=== PATIENT | female | born 1970 | race Two or more races ===

== ENCOUNTER 2016-04-17 17:02 | Emergency (ER) | payer MEDICAID ==
[~2016-04-17 17:02] MED LIST: BENA20TA2 PO; OMEP20CA10 PO
--- NOTE | 2016-04-17 17:25 | NUR ---
CALLED IN THE WR, PATIENT IS NOT AROUND
--- NOTE | 2016-04-17 17:39 | NUR ---
CALLED PATIENT IN THE WR, PATIENT IS NOT AROUND.
== END 2016-04-17 17:41 | disposition left against medical advice (07) ==
LOC: ER 17:05
DX: Z53.21 Procedure and treatment not carried out due to patient leaving prior to being seen by health care provider (principal)
CPT/HCPCS: A4606; Z7610

== ENCOUNTER 2016-10-14 13:04 | Emergency (ER) | payer MEDICAID ==
[~2016-10-14] VITALS: Ht 157.5 cm; Wt 72.6 kg
--- NOTE | 2016-10-14 13:13 | NUR ---
PRESENTS SELF TO ED FOR LEFT UPPER BACK PAIN, SHARP, 610 SINCE THIS MORNING. PATIENT IS AMBULATORY. APPEARS IN NO APPARENT DISTRESS. VSS
--- NOTE | 2016-10-14 13:49 | NUR ---
MAYANK CLOTHES DESIGNER AT BEDSIDE FOR EVAL.
[2016-10-14] MEDS ORDERED: IBUPROFEN 600 MG TABLET PO ONE ×2 (14:00→14:24)
[2016-10-14] MEDS ORDERED: HYDROCODONE/APAP 10/325MG 1 EA TABLET PO ONE (14:00)
[2016-10-14] MEDS ORDERED: HYDROCODONE/APAP 10/325MG 1 EA TABLET ONE (14:24)
[2016-10-14 14:44] VITALS: BP 132/6
--- NOTE | 2016-10-14 14:45 | NUR ---
Patient discharged to home in stable condition. Written and verbal after care instructions given. Patient verbalizes understanding of instruction.
== END 2016-10-14 14:45 | disposition home or self-care (01) ==
LOC: ER 13:05
DX: M54.6 Pain in thoracic spine (principal); I10 Essential (primary) hypertension; Z90.89 Acquired absence of other organs
CPT/HCPCS: A4606; Z7610

== ENCOUNTER 2017-01-12 17:32 | Emergency (ER) | payer MEDICAID ==
[~2017-01-12] VITALS: Ht 165.1 cm; Wt 63.5 kg
--- NOTE | 2017-01-12 17:50 | NUR ---
AAOX3, BIB FAMILY C/O WORSENING CHEST PAIN RADIATES TO LEFT ARM X 3 DAYS, DIZZINESS, NAUSEA AND VOMITING. RR IS EVEN AND UNLABORED WITH NAD NOTED. SKIN IS WARM AND DRY. RESP IS EVEN AND UNLABORED WITH NAD NOTED. DR PISANO AT BS FOR EVAL.
[2017-01-12 18:03] LABS: BASOPHILS # (AUTO) 0.1 /CMM (0.0-0.2); BASOPHILS % (AUTO) 0.6 % (0.0-2.0); EOSINOPHILS # (AUTO) 0.2 /CMM (0.0-0.7); EOSINOPHILS % (AUTO) 1.5 % (0.0-6.0); HEMATOCRIT 43 % (33-45); HEMOGLOBIN 14.9 g/dL (11.5-14.8); LYMPHOCYTES # (AUTO) 2.7 /CMM (0.8-4.8); LYMPHOCYTES % (AUTO) 19.6 % (20.0-44.0); MEAN CORPUSCULAR HEMOGLOBIN 29 PG (26.0-33.0); MEAN CORPUSCULAR HGB CONC 35 g/dl (31.0-36.0); MEAN CORPUSCULAR VOLUME 84 fL (82-100); MONOCYTES # (AUTO) 0.7 /CMM (0.1-1.30); MONOCYTES % (AUTO) 5.4 % (2.0-12.0); NEUTROPHILS # (AUTO) 9.9 /CMM (1.8-8.9); NEUTROPHILS % (AUTO) 72.9 % (43.0-81.0); PLATELET COUNT (AUTO) 375 /CMM (150-450); RDW COEFFICIENT OF VARIATION 12.3 (11.5-15.0); RED BLOOD CELL COUNT(AUTO) 5.11 MIL/uL (4.0-5.2); WHITE BLOOD COUNT (AUTO) 13.6 K/uL (4.3-11.0)
[2017-01-12 18:21] LABS: CALCIUM, SERUM 9.4 mg/dL (8.5-10.1); CARBON DIOXIDE 26 mmol/L (21-32); CHLORIDE 103 mmol/L (98-107); CREATININE 0.7 mg/dL (0.6-1.3); GLUCOSE 111 mg/dL (74-106); POTASSIUM 3.7 mmol/L (3.5-5.1); SODIUM SERUM 138 mmol/L (136-145); UREA NITROGEN, BLOOD 14 mg/dL (7-18)
[2017-01-12 18:28] LABS: INR 0.89 (0.87-1.13); PROTHROMBIN TIME 9.3 SECS (9.5-12.7)
[2017-01-12 18:31] LABS: TROPONIN I < 0.017 ng/mL (0.00-0.056)
[2017-01-12] MEDS ORDERED: KETOROLAC TROMETHAMINE INJ 30 MG/ML VIAL IV ONE (19:30)
[2017-01-12] MEDS ORDERED: KETOROLAC TROMETHAMINE INJ 30 MG/ML VIAL ONE (19:42)
--- NOTE | 2017-01-12 19:45 | NUR ---
MEDICATED PATIENT ORDERED BY DR PISANO. COMFORT MEASURES RENDERED TO PATIENT. ONGOING MONITORING. FAMILY AT BEDSIDE.
--- NOTE | 2017-01-12 21:06 | NUR ---
PLASTIC TOOL MAKER AT BEDSIDE TO DRAW BLOOD FOR TROPONIN LEVEL.
--- NOTE | 2017-01-12 22:06 | NUR ---
IV removed. Catheter intact and site benign. Pressure and 4x4 applied to site. No bleeding noted. Patient discharged to home in stable condition. Written and verbal after care instructions given. Patient verbalizes understanding of instruction. Patient is ambulatory with steady gait, accompanied by family. No further complaints.
[2017-01-12 22:07] VITALS: BP 134/74
== END 2017-01-12 22:07 | disposition home or self-care (01) ==
LOC: ER 17:39
DX: R07.89 Other chest pain (principal); I10 Essential (primary) hypertension; Z90.89 Acquired absence of other organs
CPT/HCPCS: 36415; 71010; 80048; 84484 ×2; 84703; 85025; 85730; 93005 ×2; 96374; 99285; A4606; J1885; Z7610

== ENCOUNTER 2018-12-15 13:28 | Emergency (ER) | payer MEDICAID ==
[~2018-12-15] VITALS: Ht 157.5 cm; Wt 74.8 kg
[~2018-12-15 13:28] MED LIST changes: -BENA20TA2 PO; +BENA20TA9 PO; -OMEP20CA10 PO; +OMEP20CA11 PO
[2018-12-15] MEDS ORDERED: KETOROLAC TROMETHAMINE INJ 60 MG/2 ML VIAL IM ONE ×2 (14:25→14:30)
--- NOTE | 2018-12-15 15:30 | NUR ---
PATIENT AWAKE ALERT CAMBODIAN SPEAKING HER DAUGHTER @ BEDSIDE MADE AWARE PLAN OF CARE
[2018-12-15 16:04] VITALS: BP 123/67
--- NOTE | 2018-12-15 16:06 | NUR ---
Patient discharged to home in stable condition. Written and verbal after care instructions given and PRESCRITION . Patient verbalizes understanding of instruction.
== END 2018-12-15 16:14 | disposition home or self-care (01) ==
LOC: ER 13:32
DX: M54.6 Pain in thoracic spine (principal); I10 Essential (primary) hypertension; Z90.89 Acquired absence of other organs; Z79.899 Other long term (current) drug therapy
CPT/HCPCS: 96372; 99283; J1885

== ENCOUNTER 2019-01-09 08:15 | Emergency (ER) | payer MEDICAID ==
[~2019-01-09] VITALS: Ht 157.5 cm; Wt 72.6 kg
--- NOTE | 2019-01-09 08:34 | NUR ---
BIBDAUGHTER, C/O CP PRESSURE LIKE RADIATING TO LEFT ARM SINCE THURSDAY. ON ROOM AIR, BREATHING EVENLY AND UNLABORED. CONNECTED TO THE MONITOR AND PULSE OX. WILL CONTINUE TO MONITOR ACCORDINGLY.
[2019-01-09 08:58] LABS: BASOPHILS # (AUTO) 0.1 /CMM (0.0-0.2); BASOPHILS % (AUTO) 0.7 % (0.0-2.0); EOSINOPHILS % (AUTO) 1.9 % (0.0-6.0); HEMATOCRIT 43 % (33-45); HEMOGLOBIN 14.3 g/dL (11.5-14.8); LYMPHOCYTES # (AUTO) 3.1 /CMM (0.8-4.8); LYMPHOCYTES % (AUTO) 21.4 % (20.0-44.0); MEAN CORPUSCULAR HGB CONC 33 g/dl (31.0-36.0); MEAN CORPUSCULAR VOLUME 85 fL (82-100); MONOCYTES % (AUTO) 7.1 % (2.0-12.0); NEUTROPHILS # (AUTO) 9.9 /CMM (1.8-8.9); NEUTROPHILS % (AUTO) 68.9 % (43.0-81.0); PLATELET COUNT (AUTO) 387 /CMM (150-450); RED BLOOD CELL COUNT(AUTO) 5.14 MIL/uL (4.0-5.2); WHITE BLOOD COUNT (AUTO) 14.3 K/uL (4.3-11.0)
[2019-01-09 09:00] LABS: CALCIUM, SERUM 9.2 mg/dL (8.5-10.1); CARBON DIOXIDE 27 mmol/L (21-32); CHLORIDE 103 mmol/L (98-107); CREATININE 0.6 mg/dL (0.6-1.3); GLUCOSE 102 mg/dL (74-106); POTASSIUM 3.7 mmol/L (3.5-5.1); SODIUM SERUM 138 mmol/L (136-145); UREA NITROGEN, BLOOD 12 mg/dL (7-18)
[2019-01-09] MEDS ORDERED: ASPIRIN 325 MG TABLET PO ONE (09:00)
[2019-01-09] MEDS ORDERED: ASPIRIN 325 MG TABLET ONE (09:00)
[2019-01-09 12:01] VITALS: BP 127/79
--- NOTE | 2019-01-09 12:01 | NUR ---
Patient discharged to home in stable condition. Written and verbal after care instructions given. Patient verbalizes understanding of instruction. IV removed. Catheter intact and site benign. Pressure and 4x4 applied to site. No bleeding noted.
== END 2019-01-09 12:02 | disposition home or self-care (01) ==
LOC: ER 08:19
DX: M25.512 Pain in left shoulder (principal); R07.89 Other chest pain; I10 Essential (primary) hypertension; Z90.89 Acquired absence of other organs; Z79.899 Other long term (current) drug therapy
CPT/HCPCS: 36415; 71045-TC; 73030-TC; 80048-TC; 84484-TC; 85025-TC

== ENCOUNTER 2021-07-28 10:17 | Emergency (ER) | payer MEDICAID, OTHER ==
[~2021-07-28] VITALS: Ht 157.5 cm; Wt 77.1 kg
[~2021-07-28 10:17] MED LIST changes: -OMEP20CA11 PO; +OMEP20CA15 PO
--- NOTE | 2021-07-28 10:17 | NUR ---
PT BIB SELF C/O L SIDED NUMBNESS FROM L ARM TO L LEG STARTED 7AM TODAY. PT IS AAOX4, NOT IN RESPIRATORY DISTRESS, HOOKED TO V/S MONITOR, KEPT RESTED AND COMFORTABLE. WILL CONTINUE TO MONITOR.
--- NOTE | 2021-07-28 10:50 | NUR ---
IV LINE ESTABLISHED BLOOD DRAWN AND SENT TO LAB.
[2021-07-28] MEDS ORDERED: MELO-107 PO (10:59)
[2021-07-28] MEDS ORDERED: METO25TA20 PO (10:59)
[2021-07-28] MEDS ORDERED: ASPI-1420 PO (10:59)
--- NOTE | 2021-07-28 11:00 | NUR ---
BG 106
--- NOTE | 2021-07-28 11:00 | NUR ---
IV CANNULA G18 INSERTED ON LEFT AC. BLOOD DRAWN AND SENT TO LAB
[2021-07-28] MEDS ORDERED: ASPIRIN EC 325 MG TABLET.DR PO ONE (11:27)
[2021-07-28] MEDS ORDERED: IV NS 0.9% 500 ML BAG IV ONE (11:30)
[2021-07-28] MEDS ORDERED: ASPIRIN 325 MG TABLET PO ONE (11:30)
--- NOTE | 2021-07-28 11:30 | NUR ---
COVID SWAB DONE
[2021-07-28] MEDS ORDERED: CT SWABBABLE VALVE TRANS SET 1 EA INFUS.SET MC ONE (11:39)
[2021-07-28] MEDS ORDERED: IOHEXOL-350 100 ML VIAL IV ONE (11:39)
[2021-07-28] MEDS ORDERED: IV NS 0.9% 250 ML IV ONE (11:40)
--- NOTE | 2021-07-28 11:40 | NUR ---
PT WHEELED TO CT DEPT
[2021-07-28 11:55] LABS: BASOPHILS # (AUTO) 0.3 K/uL (0.0-0.2); BASOPHILS % (AUTO) 2.9 % (0.0-2.0); EOSINOPHILS % (AUTO) 2.5 % (0.0-6.0); HEMATOCRIT 43 % (33-45); HEMOGLOBIN 14.6 g/dL (11.5-14.8); LYMPHOCYTES # (AUTO) 2.1 K/uL (0.8-4.8); MEAN CORPUSCULAR HGB CONC 34 g/dl (31.0-36.0); MEAN CORPUSCULAR VOLUME 83 fL (82-100); MONOCYTES # (AUTO) 0.7 K/uL (0.1-1.30); MONOCYTES % (AUTO) 6.8 % (2.0-12.0); NEUTROPHILS % (AUTO) 67.8 % (43.0-81.0); PLATELET COUNT (AUTO) 348 K/uL (150-450); RED BLOOD CELL COUNT(AUTO) 5.16 MIL/uL (4.0-5.2); WHITE BLOOD COUNT (AUTO) 10.3 K/uL (4.3-11.0)
--- NOTE | 2021-07-28 11:55 | NUR ---
CAME BACK FROM CT
[2021-07-28 12:06] LABS: CALCIUM, SERUM 8.9 mg/dL (8.5-10.1); CARBON DIOXIDE 28 mmol/L (21-32); CHLORIDE 105 mmol/L (98-107); CREATININE 0.7 mg/dL (0.6-1.3); GLUCOSE 112 mg/dL (74-106); POTASSIUM 3.6 mmol/L (3.5-5.1); SODIUM SERUM 143 mmol/L (136-145); UREA NITROGEN, BLOOD 10 mg/dL (7-18)
[2021-07-28 12:12] LABS: ALANINE AMINOTRANSFERASE 26 U/L (12-78); ALBUMIN 3.9 g/dL (3.4-5.0); ALKALINE PHOSPHATASE 107 U/L (46-116); ASPARTATE AMINOTRANSFERASE 19 U/L (15-37); BILIRUBIN,DIRECT 0.1 mg/dL (0.0-0.2); BILIRUBIN,TOTAL 0.3 mg/dL (0.2-1.0); TOTAL PROTEIN, SERUM 8.4 g/dL (6.4-8.2)
--- NOTE | 2021-07-28 13:31 | NUR ---
MOVE SHEET SUBMITTED.
--- NOTE | 2021-07-28 15:22 | NUR ---
CALLED DR. CONNOLLY AT [facility] [phone] MCADAMS.
[2021-07-28 19:26] LABS: CHOLESTEROL 220 mg/dL (<200); HDL CHOLESTEROL 46 mg/dL (40-60); LDL 154 mg/dL (0-99); TRIGLYCERIDES 108 mg/dL (30-150)
--- NOTE | 2021-07-28 20:00 | NUR ---
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
--- NOTE | 2021-07-28 20:09 | NUR ---
CALLED [facility] FOR TRANSPORT PLACED ON WILL CALL. [phone]
--- NOTE | 2021-07-29 01:25 | NUR ---
FOLLOWED UP WITH COORDINATOR AND WILL FOLLOW UP WITH GILBERTO ORNELAS FOR THE ROOM. WILL CALL BACK FOR TRANSFER INFO
--- NOTE | 2021-07-29 03:24 | NUR ---
accepted at [facility] room 519 tele report [phone]
--- NOTE | 2021-07-29 03:26 | NUR ---
[facility] ETA 30-45 MINUTES.
[2021-07-29 03:45] VITALS: BP 138/94
--- NOTE | 2021-07-29 03:52 | NUR ---
REPORT GIVEN TO PALOMA LAMA FOR YOLANDA AT THE [facility]
--- NOTE | 2021-07-29 04:12 | NUR ---
LIZZIE 330 AT BEDSIDE FOR PT TRANSPORT TO [facility]. REPORT GIVEN TO ZONIA, EMT
--- NOTE | 2021-07-29 04:16 | NUR ---
PT LEFT ON GURNEY WITH 2 EMT.
== END 2021-07-29 04:17 | disposition short-term general hospital (02) ==
LOC: ER 10:23
DX: R20.0 Anesthesia of skin (principal); M79.602 Pain in left arm; Z20.822 Contact with and (suspected) exposure to COVID-19; I10 Essential (primary) hypertension
CPT/HCPCS: 36415; 70450; 70496; 70498; 71045; 80048; 80061; 80076; 82962; 84484; 85025; 85730; 87426; 93005; 99291; C9803; J7040; J7050; Q9967

== ENCOUNTER 2021-12-06 16:07 | Emergency (ER) | payer OTHER ==
[~2021-12-06] VITALS: Ht 157.5 cm; Wt 77.6 kg
[~2021-12-06 16:07] MED LIST changes: +ASPI-1420 PO; +MELO-107 PO; +METO25TA20 PO; -OMEP20CA15 PO
--- NOTE | 2021-12-06 16:25 | NUR ---
Karna clifton in EDM - 12/06/21 at 1928 by NURA BIBFAMILY C/O HEADACHE [id number] P/S 08/02, HX OF TIA
[2021-12-06] MEDS ORDERED: METOCLOPRAMIDE HCL 10 MG TABLET PO ONE (18:00)
[2021-12-06] MEDS ORDERED: SUMATRIPTAN SUCCINATE 25 MG TABLET PO ONE (18:00)
[2021-12-06] MEDS ORDERED: KETOROLAC TROMETHAMINE INJ 30 MG/ML VIAL IM ONE (18:00)
[2021-12-06] MEDS ORDERED: SUMATRIPTAN SUCCINATE 25 MG TABLET ONE (18:03)
[2021-12-06] MEDS ORDERED: METOCLOPRAMIDE HCL 10 MG TABLET ONE (18:03)
[2021-12-06] MEDS ORDERED: KETOROLAC TROMETHAMINE INJ 30 MG/ML VIAL ONE (18:03)
--- NOTE | 2021-12-06 19:05 | NUR ---
1625 BIBFAMILY C/O HEADACHE [id number] P/S 08/02, HX OF TIA
[2021-12-06] MEDS ORDERED: KETO10TA2 PO (19:19)
[2021-12-06] MEDS ORDERED: SUMA100T PO (19:19)
--- NOTE | 2021-12-06 19:26 | NUR ---
Patient discharged to home in stable condition. Written and verbal after care instructions given. Patient verbalizes understanding of instruction. pt ambulatory with a steady gait
[2021-12-06 19:28] VITALS: BP 143/81
== END 2021-12-06 19:28 | disposition home or self-care (01) ==
LOC: ER 16:11
DX: G43.909 Migraine, unspecified, not intractable, without status migrainosus (principal); I10 Essential (primary) hypertension; Z90.89 Acquired absence of other organs; Z79.899 Other long term (current) drug therapy
CPT/HCPCS: 99284; 70450; 96372; J8597; J1885

== ENCOUNTER 2021-12-12 06:18 | Emergency (ER) | payer MEDICAID, OTHER ==
[~2021-12-12] VITALS: Ht 162.6 cm; Wt 72.6 kg
[~2021-12-12 06:18] MED LIST changes: +KETO10TA2 PO; +SUMA100T PO
--- NOTE | 2021-12-12 06:29 | NUR ---
BIBDAUGHTER FROM HOME C/O LEFT SIDED CP SINCE 1900 LAST NIGHT RADIATING TO LEFT ARM, AND JAW. PAIN SCALE 7/10. PT A/OX4. TOLERATING R/A WELL WITH NO SOB. AMBULATORY WITH STEADY GAIT. CONNECTED PT TO POX AND MONITOR. SAFETY MEASURES IN PLACE.
--- NOTE | 2021-12-12 06:34 | NUR ---
DR. GERBER APONTE AT PT'S BEDSIDE FOR EVAL
[2021-12-12] MEDS ORDERED: ASPIRIN 325 MG TABLET ONE (06:43)
--- NOTE | 2021-12-12 06:47 | NUR ---
RN AT PT'S BEDSIDE FOR EKG
--- NOTE | 2021-12-12 06:55 | NUR ---
RAC #18G S/L BLOOD COLLECTED AND SENT TO LAB
[2021-12-12] MEDS ORDERED: ASPIRIN 325 MG TABLET PO ONE (07:00)
[2021-12-12 07:11] LABS: BASOPHILS % (AUTO) 0.3 % (0.0-2.0); EOSINOPHILS % (AUTO) 2.5 % (0.0-6.0); HEMATOCRIT 41 % (33-45); HEMOGLOBIN 13.5 g/dL (11.5-14.8); LYMPHOCYTES # (AUTO) 3.2 K/uL (0.8-4.8); MEAN CORPUSCULAR HGB CONC 33 g/dl (31.0-36.0); MEAN CORPUSCULAR VOLUME 84 fL (82-100); MONOCYTES # (AUTO) 0.9 K/uL (0.1-1.30); MONOCYTES % (AUTO) 7.9 % (2.0-12.0); NEUTROPHILS % (AUTO) 61.3 % (43.0-81.0); PLATELET COUNT (AUTO) 352 K/uL (150-450); RED BLOOD CELL COUNT(AUTO) 4.91 MIL/uL (4.0-5.2); WHITE BLOOD COUNT (AUTO) 11.4 K/uL (4.3-11.0)
--- NOTE | 2021-12-12 07:15 | NUR ---
DELIVERY DRIVER/CUSTOMER SERVICE AT PT'S BEDSIDE
[2021-12-12 07:20] LABS: CALCIUM, SERUM 8.8 mg/dL (8.5-10.1); CARBON DIOXIDE 28 mmol/L (21-32); CHLORIDE 103 mmol/L (98-107); CREATININE 0.6 mg/dL (0.6-1.3); GLUCOSE 113 mg/dL (74-106); POTASSIUM 3.8 mmol/L (3.5-5.1); SODIUM SERUM 138 mmol/L (136-145); UREA NITROGEN, BLOOD 10 mg/dL (7-18)
[2021-12-12 07:32] LABS: ALANINE AMINOTRANSFERASE 18 U/L (12-78); ALBUMIN 3.4 g/dL (3.4-5.0); ALKALINE PHOSPHATASE 90 U/L (46-116); ASPARTATE AMINOTRANSFERASE 13 U/L (15-37); BILIRUBIN,DIRECT 0.1 mg/dL (0.0-0.2); BILIRUBIN,TOTAL 0.5 mg/dL (0.2-1.0); TOTAL PROTEIN, SERUM 7.5 g/dL (6.4-8.2)
--- NOTE | 2021-12-12 07:46 | NUR ---
No acute changes, NO obvious distress- Family at bedside both Pt/daughter made aware of plan care
[2021-12-12] MEDS ORDERED: MORPHINE SULFATE INJ 2 MG/ML DISP.SYRIN IV ONE (09:30)
[2021-12-12] MEDS ORDERED: MORPHINE SULFATE INJ 2 MG/ML DISP.SYRIN ONE (09:34)
--- NOTE | 2021-12-12 10:15 | NUR ---
discharge pt. per order/protocol; stable.accompanied by daughter upon discharge,discharge education given per protocol, pt/daughter verbalized understanding. all needs met.
[2021-12-12 10:29] VITALS: BP 128/86
== END 2021-12-12 10:15 | disposition home or self-care (01) ==
LOC: ER 06:20
DX: R07.89 Other chest pain (principal); I10 Essential (primary) hypertension; E78.00 Pure hypercholesterolemia, unspecified; M19.90 Unspecified osteoarthritis, unspecified site; Z90.89 Acquired absence of other organs; Z79.899 Other long term (current) drug therapy
CPT/HCPCS: 36415; 71045-TC; 80048-TC; 80076-TC; 83880; 84484-TC; 85025-TC; 85730-TC; J2270

== ENCOUNTER 2022-03-13 06:40 | Emergency (ER) | payer MEDICAID, OTHER ==
[~2022-03-13] VITALS: Ht 160 cm; Wt 77.1 kg
[2022-03-13] MEDS ORDERED: LIDOCAINE 2% JEL UROJET 10 ML MM ONE (07:30)
[2022-03-13] MEDS ORDERED: IV NS 0.9% 500 ML BAG IV ONE (07:30)
[2022-03-13] MEDS ORDERED: PANTOPRAZOLE 40 MG VIAL IV ONE (07:30)
[2022-03-13] MEDS ORDERED: MAG HYDROX/AL HYDROX/SIMETH 30 ML UDC PO ONE (07:30)
[2022-03-13 07:36] LABS: BASOPHILS % (AUTO) 0.5 % (0.0-2.0); EOSINOPHILS % (AUTO) 2.7 % (0.0-6.0); HEMATOCRIT 39 % (33-45); HEMOGLOBIN 12.7 g/dL (11.5-14.8); LYMPHOCYTES # (AUTO) 2.5 K/uL (0.8-4.8); LYMPHOCYTES % (AUTO) 25.2 % (20.0-44.0); MEAN CORPUSCULAR HGB CONC 33 g/dl (31.0-36.0); MEAN CORPUSCULAR VOLUME 83 fL (82-100); MONOCYTES # (AUTO) 0.8 K/uL (0.1-1.30); MONOCYTES % (AUTO) 7.9 % (2.0-12.0); NEUTROPHILS # (AUTO) 6.4 K/uL (1.8-8.9); NEUTROPHILS % (AUTO) 63.7 % (43.0-81.0); PLATELET COUNT (AUTO) 312 K/uL (150-450); RED BLOOD CELL COUNT(AUTO) 4.66 MIL/uL (4.0-5.2)
[2022-03-13] MEDS ORDERED: PANTOPRAZOLE 40 MG VIAL ONE (07:36)
[2022-03-13] MEDS ORDERED: MAG HYDROX/AL HYDROX/SIMETH 30 ML UDC ONE (07:36)
[2022-03-13 07:37] LABS: BILIRUBIN,URINE NEGATIVE (NEGATIVE); COLOR,URINE YELLOW (YELLOW); LEUKOCYTE ESTERASE ,URINE TRACE (NEGATIVE); NITRITE, URINE NEGATIVE (NEGATIVE); PH,URINE 6.5 (5.0-8.0); PROTEIN,URINE NEGATIVE (NEGATIVE); UGLUCOSE NEGATIVE (NEGATIVE); UROBILINOGEN,URINE 0.2 EU/dL (0.2)
[2022-03-13] MEDS ORDERED: LIDOCAINE VISCOUS 2% UD 15 ML UDC ONE (07:37)
--- NOTE | 2022-03-13 07:48 | NUR ---
URINE SAMPLE COLLECTED AND SENT TO LAB
--- NOTE | 2022-03-13 07:50 | NUR ---
BLOOD DRAWN BY PHLEB AT BEDSIDE
--- NOTE | 2022-03-13 07:57 | NUR ---
LAC #20, IVF INFUSING. MAALOX AND LIDOCAINE PO GIVEN INDICATED, KISHA WELL.
[2022-03-13] MEDS ORDERED: LIDOCAINE VISCOUS 2% UD 15 ML UDC MM ONE (08:00)
--- NOTE | 2022-03-13 08:05 | NUR ---
tech at bedside for ultrasound
[2022-03-13 08:20] LABS: BACTERIA,URINE Rare /HPF (None Seen); RBC,URINE 0-2 /HPF (0-2); SQUAMOUS EPITHELIAL CELL,UR Many /HPF (None Seen); WBC,URINE 0-2 /HPF (0-3)
[2022-03-13 08:42] LABS: ALBUMIN 3.2 g/dL (3.4-5.0); BILIRUBIN,DIRECT 0.1 mg/dL (0.0-0.2); BILIRUBIN,TOTAL 0.4 mg/dL (0.2-1.0); CALCIUM, SERUM 8.7 mg/dL (8.5-10.1); CREATININE 0.6 mg/dL (0.6-1.3); POTASSIUM 3.7 mmol/L (3.5-5.1); TOTAL PROTEIN, SERUM 7.1 g/dL (6.4-8.2)
[2022-03-13] MEDS ORDERED: PANT20TA2 PO (08:53)
--- NOTE | 2022-03-13 09:45 | NUR ---
IV removed. Catheter intact and site benign. Pressure and 4x4 applied to site. No bleeding noted.
--- NOTE | 2022-03-13 09:49 | NUR ---
Patient discharged to home in stable condition. Written and verbal after care instructions given. Patient verbalizes understanding of instruction.
[2022-03-13 09:50] VITALS: BP 138/65
== END 2022-03-13 09:57 | disposition home or self-care (01) ==
LOC: ER 06:42
DX: R10.13 Epigastric pain (principal); I10 Essential (primary) hypertension; E78.00 Pure hypercholesterolemia, unspecified; M19.90 Unspecified osteoarthritis, unspecified site; Z90.89 Acquired absence of other organs; Z79.82 Long term (current) use of aspirin; Z79.899 Other long term (current) drug therapy
CPT/HCPCS: 99285; 96374; 76700; 71045; 96361; 93005; 85025; 80048; 83690; 80076; 81001; 36415; J7040; C9113

== ENCOUNTER 2022-05-05 17:56 | Emergency (ER) | payer OTHER ==
[~2022-05-05] VITALS: Ht 160 cm; Wt 76.2 kg
[~2022-05-05 17:56] MED LIST changes: +PANT20TA2 PO
--- NOTE | 2022-05-05 18:15 | NUR ---
BIBDAUGHTER C/O LEFT ARM NUMBNESS SINCE "8AM YESTERDAY". AMBULATORY, PLACED IN BED, AAOX4, BREATHING EVEN AND UNLABORED SATURATING AT 97%RA.
--- NOTE | 2022-05-05 18:36 | NUR ---
BLOOD DRAWN AND SENT TO LAB
[2022-05-05 19:16] LABS: CALCIUM, SERUM 9.3 mg/dL (8.5-10.1); CHLORIDE 103 mmol/L (98-107); CREATININE 0.7 mg/dL (0.6-1.3); GLUCOSE 103 mg/dL (74-106); POTASSIUM 3.7 mmol/L (3.5-5.1); SODIUM SERUM 138 mmol/L (136-145); UREA NITROGEN, BLOOD 13 mg/dL (7-18)
[2022-05-05 19:38] LABS: CARBON DIOXIDE 29 mmol/L (21-32)
[2022-05-05] MEDS ORDERED: IOHEXOL-350 100 ML VIAL IV ONE (19:49)
[2022-05-05] MEDS ORDERED: IV NS 0.9% 250 ML IV ONE (19:49)
[2022-05-05] MEDS ORDERED: CT SWABBABLE VALVE TRANS SET 1 EA INFUS.SET MC ONE (19:49)
[2022-05-05 19:55] LABS: BASOPHILS % (AUTO) 0.2 % (0.0-2.0); EOSINOPHILS % (AUTO) 3.3 % (0.0-6.0); HEMATOCRIT 42 % (33-45); HEMOGLOBIN 13.5 g/dL (11.5-14.8); LYMPHOCYTES # (AUTO) 2.9 K/uL (0.8-4.8); LYMPHOCYTES % (AUTO) 29.2 % (20.0-44.0); MEAN CORPUSCULAR HGB CONC 32 g/dl (31.0-36.0); MEAN CORPUSCULAR VOLUME 83 fL (82-100); MONOCYTES # (AUTO) 0.8 K/uL (0.1-1.30); MONOCYTES % (AUTO) 8.3 % (2.0-12.0); NEUTROPHILS # (AUTO) 5.8 K/uL (1.8-8.9); PLATELET COUNT (AUTO) 341 K/uL (150-450); RED BLOOD CELL COUNT(AUTO) 5.06 MIL/uL (4.0-5.2); WHITE BLOOD COUNT (AUTO) 9.8 K/uL (4.3-11.0)
--- NOTE | 2022-05-05 20:15 | NUR ---
PATIENT TAKEN TO CT VIA JIN
[2022-05-05] MEDS ORDERED: ASPIRIN EC 81 MG TABLET.DR PO ONE (21:30)
[2022-05-05 21:48] VITALS: BP 116/70
== END 2022-05-05 21:35 | disposition home or self-care (01) ==
LOC: ER 17:58
DX: R20.0 Anesthesia of skin (principal); I10 Essential (primary) hypertension; E78.00 Pure hypercholesterolemia, unspecified; Z90.49 Acquired absence of other specified parts of digestive tract; Z79.899 Other long term (current) drug therapy; Z79.82 Long term (current) use of aspirin; Z86.73 Personal history of transient ischemic attack (TIA), and cerebral infarction without residual deficits
CPT/HCPCS: 99285; 72125; 71045; 93005; 70498; 70496; 85025; 80048; 36415; 84484; 85730; 82962; J7050; Q9967

== ENCOUNTER 2023-03-13 06:26 | Emergency (ER) | payer OTHER ==
[~2023-03-13] VITALS: Ht 157.5 cm; Wt 73.9 kg
[~2023-03-13 06:26] MED LIST changes: +IBUP-1953 PO
[2023-03-13 07:46] LABS: BASOPHILS % (AUTO) 0.3 % (0.0-2.0); EOSINOPHILS # (AUTO) 0.3 K/uL (0.0-0.7); EOSINOPHILS % (AUTO) 3.3 % (0.0-6.0); HEMATOCRIT 43 % (33-45); HEMOGLOBIN 14.2 g/dL (11.5-14.8); LYMPHOCYTES # (AUTO) 2.5 K/uL (0.8-4.8); LYMPHOCYTES % (AUTO) 28.8 % (20.0-44.0); MEAN CORPUSCULAR HEMOGLOBIN 29 PG (26.0-33.0); MEAN CORPUSCULAR HGB CONC 33 g/dl (31.0-36.0); MEAN CORPUSCULAR VOLUME 86 fL (82-100); MONOCYTES # (AUTO) 0.8 K/uL (0.1-1.30); NEUTROPHILS # (AUTO) 5.1 K/uL (1.8-8.9); NEUTROPHILS % (AUTO) 58.6 % (43.0-81.0); PLATELET COUNT (AUTO) 289 K/uL (150-450); RED BLOOD CELL COUNT(AUTO) 4.98 MIL/uL (4.0-5.2); RED CELL DISTRIBUTION WIDTH 13.3 % (11.5-15.0); WHITE BLOOD COUNT (AUTO) 8.6 K/uL (4.3-11.0)
[2023-03-13 08:00] LABS: PREGNANCY TEST URINE QUAL NEGATIVE (NEGATIVE)
[2023-03-13 08:09] LABS: CALCIUM, SERUM 9.2 mg/dL (8.5-10.1); CARBON DIOXIDE 29 mmol/L (21-32); CHLORIDE 103 mmol/L (98-107); CREATININE 0.7 mg/dL (0.6-1.3); GLUCOSE 111 mg/dL (74-106); POTASSIUM 3.8 mmol/L (3.5-5.1); SODIUM SERUM 139 mmol/L (136-145); UREA NITROGEN, BLOOD 11 mg/dL (7-18)
[2023-03-13 11:07] VITALS: BP 128/79; TEMP 98.1; O2SAT 97
== END 2023-03-13 11:07 | disposition home or self-care (01) ==
LOC: ER 06:29
DX: M79.10 Myalgia, unspecified site (principal); R07.89 Other chest pain; I10 Essential (primary) hypertension; E78.00 Pure hypercholesterolemia, unspecified; E11.9 Type 2 diabetes mellitus without complications; M19.90 Unspecified osteoarthritis, unspecified site; Z90.89 Acquired absence of other organs; Z79.899 Other long term (current) drug therapy
CPT/HCPCS: 36415; 70450-TC; 71045-TC; 80048-TC; 84484-TC; 84703-TC; 85025-TC

== ENCOUNTER 2023-07-12 19:22 | Emergency (ER) | payer OTHER ==
[~2023-07-12] VITALS: Ht 157.5 cm; Wt 76.2 kg
[2023-07-12] MEDS ORDERED: MECLIZINE HCL 25 MG TABLET ONE (20:03)
[2023-07-12] MEDS: MECLIZINE HCL 12.5 MG TABLET PO ONE (20:06)
[2023-07-12 20:16] LABS: BASOPHILS % (AUTO) 0.5 % (0.0-2.0); EOSINOPHILS # (AUTO) 0.3 K/uL (0.0-0.7); EOSINOPHILS % (AUTO) 3.2 % (0.0-6.0); HEMATOCRIT 43 % (33-45); HEMOGLOBIN 14.4 g/dL (11.5-14.8); LYMPHOCYTES # (AUTO) 3.5 K/uL (0.8-4.8); LYMPHOCYTES % (AUTO) 38.1 % (20.0-44.0); MEAN CORPUSCULAR HEMOGLOBIN 29 PG (26.0-33.0); MEAN CORPUSCULAR HGB CONC 33 g/dl (31.0-36.0); MEAN CORPUSCULAR VOLUME 87 fL (82-100); MONOCYTES # (AUTO) 0.7 K/uL (0.1-1.30); MONOCYTES % (AUTO) 7.5 % (2.0-12.0); NEUTROPHILS # (AUTO) 4.6 K/uL (1.8-8.9); NEUTROPHILS % (AUTO) 50.7 % (43.0-81.0); PLATELET COUNT (AUTO) 302 K/uL (150-450); RED BLOOD CELL COUNT(AUTO) 4.94 MIL/uL (4.0-5.2); RED CELL DISTRIBUTION WIDTH 13.5 % (11.5-15.0); WHITE BLOOD COUNT (AUTO) 9.2 K/uL (4.3-11.0)
[2023-07-12 20:27] LABS: CARBON DIOXIDE 30 mmol/L (21-32); CHLORIDE 104 mmol/L (98-107); CREATININE 0.6 mg/dL (0.6-1.3); GLUCOSE 100 mg/dL (74-106); POTASSIUM 3.9 mmol/L (3.5-5.1); SODIUM SERUM 139 mmol/L (136-145); UREA NITROGEN, BLOOD 12 mg/dL (7-18)
[2023-07-12] MEDS ORDERED: MECL-159 PO (21:44)
[2023-07-12] MEDS ORDERED: ONDA4TAB5 PO (21:44)
[2023-07-12 21:55] VITALS: BP 138/88; TEMP 98; O2SAT 98
== END 2023-07-12 21:55 | disposition home or self-care (01) ==
LOC: ER 19:27
DX: R42 Dizziness and giddiness (principal); R51.9 Headache, unspecified; I10 Essential (primary) hypertension; E78.00 Pure hypercholesterolemia, unspecified; E11.9 Type 2 diabetes mellitus without complications; M19.90 Unspecified osteoarthritis, unspecified site; Z90.89 Acquired absence of other organs; Z79.899 Other long term (current) drug therapy
CPT/HCPCS: 99284; 70450; 93005; 85025; 80048; 36415; 84484; J8597

== ENCOUNTER 2023-12-22 18:17 | Emergency (ER) | payer OTHER ==
[~2023-12-22] VITALS: Ht 154.9 cm; Wt 76.2 kg
[~2023-12-22 18:17] MED LIST changes: +MECL-159 PO; +ONDA4TAB5 PO
[2023-12-22 18:59] LABS: BASOPHILS # (AUTO) 0.1 K/uL (0.0-0.2); BASOPHILS % (AUTO) 0.6 % (0.0-2.0); EOSINOPHILS # (AUTO) 0.3 K/uL (0.0-0.7); EOSINOPHILS % (AUTO) 2.9 % (0.0-6.0); HEMATOCRIT 43 % (33-45); HEMOGLOBIN 14.3 g/dL (11.5-14.8); LYMPHOCYTES # (AUTO) 2.9 K/uL (0.8-4.8); LYMPHOCYTES % (AUTO) 28.8 % (20.0-44.0); MEAN CORPUSCULAR HEMOGLOBIN 29 PG (26.0-33.0); MEAN CORPUSCULAR HGB CONC 33 g/dl (31.0-36.0); MEAN CORPUSCULAR VOLUME 86 fL (82-100); MONOCYTES % (AUTO) 9.9 % (2.0-12.0); NEUTROPHILS # (AUTO) 5.9 K/uL (1.8-8.9); NEUTROPHILS % (AUTO) 57.8 % (43.0-81.0); PLATELET COUNT (AUTO) 310 K/uL (150-450); RED BLOOD CELL COUNT(AUTO) 4.97 MIL/uL (4.0-5.2); RED CELL DISTRIBUTION WIDTH 13.2 % (11.5-15.0); WHITE BLOOD COUNT (AUTO) 10.2 K/uL (4.3-11.0)
[2023-12-22 19:07] LABS: CALCIUM, SERUM 9.5 mg/dL (8.5-10.1); CREATININE 0.6 mg/dL (0.6-1.3); POTASSIUM 3.8 mmol/L (3.5-5.1)
[2023-12-22 19:13] LABS: ALBUMIN 3.6 g/dL (3.4-5.0); BILIRUBIN,DIRECT 0.1 mg/dL (0.0-0.2); BILIRUBIN,TOTAL 0.2 mg/dL (0.2-1.0); TOTAL PROTEIN, SERUM 7.8 g/dL (6.4-8.2)
[2023-12-22] MEDS ORDERED: MAG HYDROX/AL HYDROX/SIMETH 30 ML UDC ONE (19:20)
[2023-12-22] MEDS ORDERED: PANTOPRAZOLE 40 MG VIAL ONE (19:20)
[2023-12-22] MEDS ORDERED: LIDOCAINE VISCOUS 2% UD 15 ML UDC ONE (19:20)
[2023-12-22] MEDS: PANTOPRAZOLE 40 MG VIAL IV ONE (19:31)
[2023-12-22] MEDS: MAG HYDROX/AL HYDROX/SIMETH 30 ML UDC PO ONE (19:31)
[2023-12-22] MEDS: LIDOCAINE VISCOUS 2% UD 15 ML UDC MM ONE (19:31)
[2023-12-22] MEDS ORDERED: ONDA4TAB5 PO (20:10)
[2023-12-22 20:46] VITALS: BP 156/83; TEMP 98.3; O2SAT 96
== END 2023-12-22 20:47 | disposition home or self-care (01) ==
LOC: ER 18:22
DX: R10.11 Right upper quadrant pain (principal); I10 Essential (primary) hypertension; E11.9 Type 2 diabetes mellitus without complications; E78.00 Pure hypercholesterolemia, unspecified; M19.90 Unspecified osteoarthritis, unspecified site; Z86.73 Personal history of transient ischemic attack (TIA), and cerebral infarction without residual deficits; Z79.1 Long term (current) use of non-steroidal anti-inflammatories (NSAID); Z79.82 Long term (current) use of aspirin; Z90.49 Acquired absence of other specified parts of digestive tract; Z79.899 Other long term (current) drug therapy
CPT/HCPCS: 99285; 96374; 76705; 85025; 80048; 83690; 80076; 36415; J2470

== ENCOUNTER 2024-10-06 08:25 | Emergency (ER) | payer OTHER ==
[~2024-10-06] VITALS: Ht 157.5 cm; Wt 75.3 kg
[2024-10-06] MEDS: IV NS 0.9% 1,000 ML BAG IV ONE (08:47)
[2024-10-06] MEDS ORDERED: ONDANSETRON HCL/PF 4 MG/2 ML VIAL ONE (08:49)
[2024-10-06] MEDS: ONDANSETRON HCL/PF 4 MG/2 ML VIAL IVP ONE (08:52)
[2024-10-06 08:54] LABS: PLATELET COUNT (AUTO) 352 K/uL (150-450); RED BLOOD CELL COUNT(AUTO) 5.34 MIL/uL (4.0-5.2); RED CELL DISTRIBUTION WIDTH 12.9 % (11.5-15.0); WHITE BLOOD COUNT (AUTO) 9.2 K/uL (4.3-11.0)
[2024-10-06 09:06] LABS: CALCIUM, SERUM 9.2 mg/dL (8.5-10.1); CREATININE 0.6 mg/dL (0.6-1.3); SODIUM SERUM 141.0 mmol/L (136-145); UREA NITROGEN, BLOOD 12.0 mg/dL (7-18)
[2024-10-06 09:08] LABS: APPEARANCE,URINE CLEAR (CLEAR); BLOOD, URINE TRACE-INTA Ery/uL (NEGATIVE); LEUKOCYTE ESTERASE ,URINE NEGATIVE (NEGATIVE); NITRITE, URINE NEGATIVE (NEGATIVE); UGLUCOSE NEGATIVE (NEGATIVE)
[2024-10-06] MEDS ORDERED: IOHEXOL-300 100 ML VIAL IV ONE (09:11)
[2024-10-06] MEDS ORDERED: IV NS 0.9% 250 ML IV ONE (09:12)
[2024-10-06 09:13] LABS: ASPARTATE AMINOTRANSFERASE 19.0 U/L (15-37); TOTAL PROTEIN, SERUM 7.9 g/dL (6.4-8.2)
[2024-10-06 09:14] LABS: PREGNANCY TEST URINE QUAL NEGATIVE (NEGATIVE)
[2024-10-06 09:18] LABS: ADD URINE CULTURE YES; SQUAMOUS EPITHELIAL CELL,UR Few /HPF (None Seen)
[2024-10-06] MEDS ORDERED: KETOROLAC TROMETHAMINE 15 MG/ML VIAL ONE (10:01)
[2024-10-06] MEDS ORDERED: KETOROLAC TROMETHAMINE INJ 30 MG/ML VIAL ONE (10:02)
[2024-10-06] MEDS: KETOROLAC TROMETHAMINE INJ 30 MG/ML VIAL IV ONE (10:04)
[2024-10-06] MEDS ORDERED: ONDA4TAB11 PO (11:28)
[2024-10-06 11:58] VITALS: BP 146/84; TEMP 98.6; O2SAT 97
== END 2024-10-06 11:58 | disposition home or self-care (01) ==
LOC: ER 08:29
DX: R10.32 Left lower quadrant pain (principal); I10 Essential (primary) hypertension; E11.9 Type 2 diabetes mellitus without complications; E78.00 Pure hypercholesterolemia, unspecified; M19.90 Unspecified osteoarthritis, unspecified site; Z79.1 Long term (current) use of non-steroidal anti-inflammatories (NSAID); Z79.82 Long term (current) use of aspirin; Z79.899 Other long term (current) drug therapy; Z82.49 Family history of ischemic heart disease and other diseases of the circulatory system; Z86.73 Personal history of transient ischemic attack (TIA), and cerebral infarction without residual deficits; Z90.49 Acquired absence of other specified parts of digestive tract
CPT/HCPCS: 36415; 80048-TC; 80076-TC; 81001; 83690-TC; 84703-TC; 85025-TC; 87086-TC; J1885; J2405; J7030; J7050; Q9967